=== PATIENT | female | born 1950 | race Caucasian/White ===

== ENCOUNTER → 2017-10-09 | Outpatient (CLI) | payer BC ==
[2016-09-08 17:10] VITALS: BP 147/68
[~2017-10-09] MED LIST: ASPI-612 PO; CALCIUM; CHOL500016 PO; CHOLECALCIFEROL; CIPR500T94 PO; DICY20TA3 PO; FISH1CAP PO; GLIM4TAB2 PO; METF-620 PO; MULT1TAB52 PO; NIAC500T PO; ONDA4TAB7 PO; SIMV40TA3 PO
== END | disposition home or self-care (01) ==
LOC: KCIC MAMMO 14:11
PROVIDERS: ATTEND Family Medicine
DX: Z12.31 Encounter for screening mammogram for malignant neoplasm of breast (principal)
CPT/HCPCS: 77063; G0202; 77067

== ENCOUNTER → 2018-07-23 | Day surgery (SDC) | payer BC, MEDICARE ==
[~2018-07-23] MED LIST changes: +DULA1.5P SQ; +LIDOCAINE 2% PF Vial for OR 5 ML VIAL. ONE; -METF-620 PO; +METF10003 PO; +MIRA25TA PO; +PROPOFOL 40 ML IV ONE
[2018-07-23 08:49] VITALS: BP 117/64
--- NOTE | 2018-07-23 15:45 | CONS ---
DATE OF CONSULTATION: 07/23/2018 REASON FOR CONSULTATION: Colorectal screen. REFERRING PHYSICIAN: Jose Bird M.D. HISTORY OF PRESENT ILLNESS: This is a 68-year-old female whose past medical history is significant for , diabetes and hyperlipidemia, seen for a screening colon exam. Bowel habits are regular without diarrhea or constipation. There has been no melena and or hematochezia. Weight and appetite are stable and family history is nonrevealing for colon polyps or colon cancer. She has not undergone previous screening studies. PAST MEDICAL HISTORY: Diabetes, hyperlipidemia, status post . ALLERGIES: None. MEDICATIONS: Include aspirin, vitamin D, dicyclomine, Trulicity, fish oil, glimepiride, metformin, Myrbetriq, multivitamins, niacin and simvastatin. SOCIAL HISTORY: She is a retired schoolteacher. Does not drink or smoke. FAMILY HISTORY: Significant for diabetes with her mother and heart attack with her father. REVIEW OF SYSTEMS: HEENT: There is no decrease in visual acuity issues. CARDIAC: No history of hypertension, palpitations, syncope. PULMONARY: No shortness breath, productive cough, asthma. RENAL: No dysuria, frequency, hematuria. ENDOCRINE: History of diabetes. NEUROLOGIC: No stroke, migraine, neuropathy. PSYCHIATRIC: No mood swings, depression, insomnia. DERMATOLOGIC: No skin rashes or pruritus. HEMATOLOGIC: No bleeding, bruising, coagulopathy. GASTROINTESTINAL: See history of present illness. PHYSICAL EXAMINATION: GENERAL: Reveals a well-nourished, well-developed female. VITAL SIGNS: Temperature is 97.8, pulse 75, respirations 20. HEENT: Reveals normocephalic and atraumatic head. Pupils and extraocular muscles are not tested. Sclerae are icteric. NECK: Supple. LUNGS: Clear. CARDIOVASCULAR: Reveals an S1, S2 without S3, S4 or appreciable murmur. ABDOMEN: Reveals soft abdomen, normal bowel sounds without appreciable hepatosplenomegaly. EXTREMITIES: Reveals no cyanosis, clubbing, edema. IMPRESSION: Colorectal screening is warranted at this time. Risks and benefits of procedure including risk of hemorrhage and perforation during the operation have been discussed with the patient and is willing to proceed. I thank Dr. Bird for allowing us to consult and participate in the patient's care. TIANNA KELLEY MD DR: Kavitha JOB#: [id number] / [id number]
== END | disposition home or self-care (01) ==
LOC: SURG 06:59
PROVIDERS: ATTEND Internal Medicine Gastroenterology
DX: Z12.11 Encounter for screening for malignant neoplasm of colon (principal); K64.0 First degree hemorrhoids; E11.9 Type 2 diabetes mellitus without complications; Z98.890 Other specified postprocedural states; E78.5 Hyperlipidemia, unspecified; Z79.82 Long term (current) use of aspirin; Z79.899 Other long term (current) drug therapy; Z82.49 Family history of ischemic heart disease and other diseases of the circulatory system; Z83.3 Family history of diabetes mellitus; Z79.84 Long term (current) use of oral hypoglycemic drugs
CPT/HCPCS: 82962; G0121; J2001; J2704; 45378

== ENCOUNTER → 2018-12-10 | Outpatient (CLI) | payer BC, MEDICARE ==
[2018-07-23 08:49] VITALS: BP 117/64
[~2018-12-10] MED LIST changes: -LIDOCAINE 2% PF Vial for OR 5 ML VIAL. ONE; -METF10003 PO; +METF10007 PO; -PROPOFOL 40 ML IV ONE
--- NOTE | 2018-12-15 15:12 | KCIC ---
BILATERAL SCREENING MAMMOGRAM, 3-D History: Routine screening. Comparison: Bilateral mammogram October 09, 2017. Technique: MLO and CC digital tomosynthesis (3D) images obtained. Radiologist reviewed these images on dedicated workstation. Findings: Breast Tissue Density C : The breasts are heterogeneously dense, which may obscure small masses. There are no dominant suspicious masses, suspicious microcalcifications, or architectural distortion. IMPRESSION: No mammographic evidence of malignancy. Recommend routine screening. BI-RADS category 1: Negative. The images were reviewed with computer-aided detection. Patient information is entered into reminder system with a target due date for the next screening mammogram. Mammography is the most sensitive method for finding small breast cancers, but it does not detect them all and is not a substitute for careful clinical examination. A negative mammogram does not negate a clinically suspicious finding and should not result in delay in biopsying a clinically suspicious abnormality. "Our facility is accredited by the [employer] Mammography [employer]." Electronically signed by: Lewis Alejandre MD (12/11/2018 10:02 AM) [id number]
== END | disposition home or self-care (01) ==
LOC: KCIC MAMMO 10:40
PROVIDERS: ATTEND Family Medicine
DX: Z12.31 Encounter for screening mammogram for malignant neoplasm of breast (principal)
CPT/HCPCS: 77063; 77067

== ENCOUNTER → 2021-05-16 | Outpatient (CLI) | payer BC ==
[2018-07-23 08:49] VITALS: BP 117/64
[~2021-05-16] MED LIST changes: -ASPI-612 PO; +ASPI-886 PO; -GLIM4TAB2 PO; +GLIM4TAB8 PO; +MULT-445 PO; -MULT1TAB52 PO; +SIMV40TA18 PO; -SIMV40TA3 PO
--- NOTE | 2021-05-16 13:44 | KCIC ---
Bilateral digital screening mammograms with 3-D tomosynthesis: Reason for examination: Routine screening. Comparison is made to previous studies dated back to 06/01/2016. Bilateral mammograms in CC and oblique projections were obtained with 2-D imaging and 3-D tomosynthes is imaging on a Siemens Inspiration unit and reviewed on the workstation. Interpretation was made wit h the benefit of CAD. The skin and nipples show no abnormalities. No abnormal axillary lymph nodes are seen. The breast par enchyma is heterogeneously dense. (Breast density: Category C.) There are no dominant masses, suspici ous calcifications or architectural distortion. Impression: No evidence of malignancy. Recommend routine screening. Your patient's mammogram demonstrates that she has dense breast tissue (breast density category C or D), which could hide abnormalities, and if she has other risk factors for breast cancer that have bee n identified, she might benefit from supplemental screening tests that may be suggested by you as her ordering physician. Dense breast tissue, in and of itself, is a relatively common condition. Therefo re, this information is not provided to cause undue concern, but rather to raise your awareness and t o promote discussion with your patient regarding the presence of other risk factors, in addition to d ense breast tissue. Your patient's mammography results will be sent to her. BI-RAD Category 2: Benign. "Our facility is accredited by the [employer] Mammography Program." This patient's information has been entered into a reminder system for the patient to be notified wit h the results of her examination and a target date for the next mammogram. Electronically signed by: Rachel Feliz MD (05/16/2021 12:46 PM) [facility]
== END ==
LOC: KCIC MAMMO 10:27
PROVIDERS: ATTEND Family Medicine
DX: Z12.31 Encounter for screening mammogram for malignant neoplasm of breast (principal)
CPT/HCPCS: 77063; 77067